=== PATIENT | male | born 1950 | race Caucasian/White ===

== ENCOUNTER → 2016-10-08 | Outpatient (CLI) | payer OTHER, MEDICARE ==
--- NOTE | 2016-10-08 07:26 | US ---
EXAMINATION TYPE: US kidneys/renal and bladder DATE OF EXAM: 10/08/2016 COMPARISON: August 23, 2013 CLINICAL HISTORY: Q61.3 PKD. known numerous bilateral cysts EXAM MEASUREMENTS: Right Kidney: 14.7 x 6.6 x 6.3 cm Left Kidney: 14.7 x 9.7 x 7.3 cm Due to the polycystic condition it is difficult to visualize distinct renal borders and obtain accura te size measurements. Right Kidney: numerous cysts, largest at the upper pole measuring 8.8cm Left Kidney: numerous cysts, largest at the upper pole measuring 10.3cm Bladder: wnl Bilateral Jets seen: yes The urinary bladder is anechoic. Bilateral ureteral jets are seen. IMPRESSION: Again noted are findings compatible with autosomal dominant polycystic kidney disease. No evidence fo r hydronephrosis nephrolithiasis or solid renal mass.
== END | disposition home or self-care (01) ==
LOC: RADUSWWP 06:54
PROVIDERS: ATTEND Internal Medicine Nephrology
DX: Q61.3 Polycystic kidney, unspecified (principal)
CPT/HCPCS: 76770

== ENCOUNTER → 2019-01-13 | Outpatient (CLI) | payer MEDICARE ==
--- NOTE | 2019-01-13 09:42 | US ---
EXAMINATION TYPE: US duplex aorta DATE OF EXAM: 01/13/2019 COMPARISON: None CLINICAL HISTORY: 68-year-old male F17.210 Nicotine dependence,Z0000 Annual physical. TECHNIQUE: Multiple sonographic images of the abdominal aorta are obtained. FINDINGS: EXAM MEASUREMENTS: Abdominal Aorta: Proximal: 2.2cm Mid: 2.2cm Distal: 1.9 Bifurcation: obscured by overlying bowel gas/obesity Atherosclerotic changes noted Obese patient, technically difficult study. *Anechoic structures to the left of midline appear to be renal cysts measuring up to 9 cm but only pa rtially visualized. IMPRESSION: 1. No sonographic evidence for AAA. Note that the aortic bifurcation and common iliac arteries are ob scured by bowel gas. 2. Numerous large bilateral renal cysts measuring up to 9 cm. Correlate for possible underlying polyc ystic kidney disease.
== END | disposition home or self-care (01) ==
LOC: RADUSWWP 07:24
PROVIDERS: ATTEND Family Medicine
DX: Z00.00 Encounter for general adult medical examination without abnormal findings (principal); F17.210 Nicotine dependence, cigarettes, uncomplicated
CPT/HCPCS: 93979

== ENCOUNTER → 2019-04-28 | Outpatient (CLI) | payer MEDICARE ==
--- NOTE | 2019-04-28 10:57 | MR ---
EXAMINATION TYPE: MR cervical spine wo con DATE OF EXAM: 04/28/2019 COMPARISON: 06/17/2013 HISTORY: Neck pain, rt arm weakness TECHNIQUE: Multiplanar, multisequence images of the cervical spine were acquired. C2-C3: Degenerative disc disease and disc desiccation. Facet arthropathy greater on the left results in mild left foraminal encroachment. C3-C4: Degenerative disc disease and facet arthropathy with uncovertebral joint hypertrophy. There is mild right-sided foraminal encroachment and severe left-sided foraminal encroachment. C4-C5: Severe degenerative disc disease and hypertrophic spurring. Broad-based disc protrusion with p osterior spondylosis results in moderate severe canal stenosis and bilateral foraminal encroachment. There is compression of the anterior margin the spinal cord. Area of abnormal signal within the spina l cord not excluded. Could not exclude a degree of compressive myelitis. Finding is progressed from t he prior exam. C5-C6: Severe degenerative disc disease with broad-based disc protrusion. There is facet arthropathy and uncovertebral joint hypertrophy. Severe bilateral foraminal encroachment and mild canal stenosis. Findings similar to the prior exam. C6-C7: Severe degenerative disc disease with broad-based disc bulging. Uncovertebral joint hypertroph y and facet arthropathy contribute to severe bilateral foraminal encroachment. No Canal stenosis. C7-T1: No evidence for degenerative disc disease. No disc bulge/herniation or protrusion. No Canal stenosis. Foramina are patent bilaterally. Cervical segments are intact. There is normal alignment. Question a small area of abnormal signal wi thin the cervical spinal cord at the level C4-C5 is not excluded. Craniovertebral junction relationsh ips are within normal limits. IMPRESSION: 1. Multilevel severe degenerative disc disease which is progressed from the prior exam. There is mode rate to severe canal stenosis at C4-C5 which is progressed from the prior exam. Findings secondary to apical spondylosis, disc protrusion with hypertrophic changes of the facets and uncovertebral joints . Severe bilateral foraminal encroachment. 2. Mild canal stenosis due to disc bulging or protrusion and hypertrophic changes C5-C6 with severe b ilateral foraminal encroachment. 3. Severe bilateral foraminal encroachment due to hypertrophic changes and degenerative disc disease C6-C7. 4. Severe left-sided foraminal encroachment C3-C4 due to hypertrophic spondylosis and uncovertebral j oint hypertrophy and facet arthropathy.
== END | disposition home or self-care (01) ==
LOC: RADMRIMAIN 09:26
PROVIDERS: ATTEND Family Medicine
DX: M48.02 Spinal stenosis, cervical region (principal); M50.221 Other cervical disc displacement at C4-C5 level; M50.31 Other cervical disc degeneration, high cervical region; M47.812 Spondylosis without myelopathy or radiculopathy, cervical region; M46.92 Unspecified inflammatory spondylopathy, cervical region
CPT/HCPCS: 72141

== ENCOUNTER → 2019-09-08 | Outpatient (CLI) | payer MEDICARE | END | disposition home or self-care (01) | LOC: LABPAT 12:38 | PROVIDERS: ATTEND Orthopaedic Surgery Orthopaedic Surgery of the Spine | DX: U07.1 COVID-19 (principal) | CPT/HCPCS: 86850; 86900; 86901 ==

== ENCOUNTER → 2019-09-09 | Outpatient (CLI) | payer MEDICARE, OTHER ==
--- NOTE | 2019-09-09 15:15 | XR ---
EXAMINATION TYPE: XR chest 2V DATE OF EXAM: 09/09/2019 COMPARISON: NONE TECHNIQUE: PA and lateral views submitted. HISTORY: Presurgical FINDINGS: The lungs are clear and there is no pneumothorax, pleural effusion, or focal pneumonia. Heart size mildly prominent. No overt failure. Hypertrophic and degenerative change of the spine. IMPRESSION: 1. No acute process.
[2019-09-09 15:16] LABS: Basophils # (A) 0.1 k/uL (0-0.2); Basophils % (A) 1 %; Eosinophils # (A) 0.2 k/uL (0-0.7); Eosinophils % (A) 3 %; HCT 47.2 % (39.0-53.0); HGB 14.8 gm/dL (13.0-17.5); Lymphocytes # (A) 1.1 k/uL (1.0-4.8); Lymphocytes % (A) 13 %; MCH 29.3 pg (25.0-35.0); MCHC 31.5 g/dL (31.0-37.0); MCV 93.2 fL (80.0-100.0); Mean Platelet Volume 7.2; Monocytes # (A) 0.5 k/uL (0-1.0); Monocytes % (A) 6 %; Neutrophils # (A) 6.2 k/uL (1.3-7.7); Neutrophils % (A) 76 %; Platelet Count 213 k/uL (150-450); RBC 5.06 m/uL (4.30-5.90); RDW 13.9 % (11.5-15.5); WBC 8.1 k/uL (3.8-10.6)
[2019-09-09 15:23] LABS: Partial Thromboplastin Time 28.1 sec (22.0-30.0); Prothrombin Time 10.6 sec (9.0-12.0)
[2019-09-09 15:29] LABS: Calcium 10.2 mg/dL (8.4-10.2); Potassium 4.3 mmol/L (3.5-5.1)
[2019-09-09 15:48] LABS: Amorphous Sediment,Urine Rare /hpf; Appearance,Urine Clear (Clear); Bilirubin,Urine Negative (Negative); Blood,Urine Negative (Negative); Color,Urine Yellow; Glucose,Urine (UA) Negative (Negative); Hyaline Casts,Urine 1 /lpf (0-2); Ketones,Urine Negative (Negative); Leukocyte Esterase,Urine Negative (Negative); Mucus,Urine Rare /hpf; Nitrite,Urine Negative (Negative); PH, Urine 5.5 (5.0-8.0); Protein,Urine 1+ (Negative); RBC,Urine 4 /hpf (0-5); Specific Gravity,Urine 1.014 (1.001-1.035); Squamous Epithelial Cell,Urine <1 /hpf (0-4); Urobilinogen,Urine <2.0 mg/dL (<2.0); WBC,Urine 1 /hpf (0-5)
== END | disposition home or self-care (01) ==
LOC: LABPAT 14:22
PROVIDERS: ATTEND Orthopaedic Surgery Orthopaedic Surgery of the Spine
DX: Z01.818 Encounter for other preprocedural examination (principal); Z79.01 Long term (current) use of anticoagulants; M48.02 Spinal stenosis, cervical region
CPT/HCPCS: 36415; 71046; 80048; 81001; 85025; 85610; 85730

== ENCOUNTER → 2019-09-12 | Day surgery (SDC) | payer MEDICARE ==
[2019-09-09 09:54] VITALS: BMI 35.6
[~2019-09-12] MED LIST: ALPRAZolam 0.5 MG TAB PO SCH; ASPIRIN 325 MG TAB PO SCH; ATORVASTATIN 80 MG TAB PO SCH; Acetaminophen-Codeine 300-30mg TAB PO PRN; BENZOCAINE/MENTHOL LOZENG 1 EACH LOZENGE MUCOUS MEM PRN; BUPIVACAINE (PF) 0.5% 30 ML VIAL SQ ONE; CHONDR SU A SOD PO SCH; CYCLOBENZAPRINE 5 MG TAB PO PRN; DEXAMETHASONE SOD PHOSPHATE 10 MG/ML 1 ML VIAL IV ONE; DEXAMETHASONE SOD PHOSPHATE 10 MG/ML 1 ML VIAL ONE; ENALAPRIL 5 MG PO SCH; ERGOCALCIFEROL 50,000 UNIT CAP PO SCH; FUROSEMIDE 40 MG TAB PO PRN; GELATIN SPONGE,ABSORB (LARGE) 1 EACH SPONGE TOPICAL ONE; GLUCOSAMINE PO SCH; GLYCOPYRROLATE 0.2 MG/ML 2 ML VIAL ONE; HYDRALAZINE HCL 100 MG PO SCH; HYDRALAZINE HCL 200 MG PO SCH; HYDROcodone/APAP 5-325MG 1 EACH TAB PO PRN; HYDROmorphone 0.5 MG/0.5 ML SYRINGE IVP PRN; HYDROmorphone 1 MG/ML 1 ML SYRINGE IVP PRN; KETAMINE 10 MG/ML 20 ML VIAL ONE; LACTATED RINGERS 1,000 ML IV ONE; LACTATED RINGERS 1,000 ML IV SCH; LIDOCAINE 1% INJ 10MG/ML (20 ML MDV) ONE; MAG HYDROX/AL HYDROX/SIMETH 30 ML CUP PO PRN; MAGNESIUM HYDROXIDE 2,400 MG/10 ML CUP PO PRN; METOPROLOL TARTRATE 100 MG PO SCH; MIDAZOLAM 2 MG/2 ML VIAL IV PRN; MIDAZOLAM 2 MG/2 ML VIAL ONE; NIACIN 500 MG PO SCH; NON FORMULARY DRUG (Omega-3 Fatty Acids/Fish Oil [Fish Oil 1,000 Mg Softgel] 1 EACH) PO SCH; ONDANSETRON 4 MG/2 ML VIAL IVP ONE; ONDANSETRON 4 MG/2 ML VIAL IVP PRN; ONDANSETRON 4 MG/2 ML VIAL ONE; POTASSIUM CHLORIDE 10 MEQ PO SCH; PRAMIPEXOLE 0.25 MG TAB PO SCH; PROPOFOL 10 MG/ML 20 ML VIAL IV ONE; ROCURONIUM BROMIDE 10 MG/ML 5 ML VIAL IV ONE; SODIUM CHLORIDE 0.9% 1,000 ML IV SCH; SODIUM CHLORIDE 0.9% IRRIGATIO 1,000 ML IRRIGATION ONE; SUCCINYLCHOLINE CHLORIDE 100 MG/5 ML SYR IV ONE; THROMBIN (BOVINE) 5,000 UNIT VIAL TOPICAL ONE; amLODIPine 5 MG TAB PO SCH; ceFAZolin 3 GM in SODIUM CHLORIDE 0.9% 100 ML IVPB ONE; ePHEDrine SULFATE/0.9% NACL/PF 50 MG/5 ML SYRINGE IV ONE; fentaNYL (PF) 50 MCG/ML 2 ML AMP ONE
--- NOTE | 2019-09-12 09:20 | P.OP ---
Date of Procedure: 09/12/19 Preoperative Diagnosis: Cervical stenosis C4 5 C5 6, upper extremity radiculopathy, upper extremity weakness, neck pain, herniated nucleus pulposus C4 5 C5 6, degenerative disc disease Postoperative Diagnosis: Same Anesthesia: GETA Pathology: none sent Condition: stable Disposition: PACU Description of Procedure: BRIEF OPERATIVE NOTE Preoperative Diagnosis:Cervical stenosis C4 5 C5 6, upper extremity radiculopathy, upper extremity weakness, neck pain, herniated nucleus pulposus C4 5 C5 6, degenerative disc disease Postoperative Diagnosis:Cervical stenosis C4 5 C5 6, upper extremity radiculopathy, upper extremity weakness, neck pain, herniated nucleus pulposus C4 5 C5 6, degenerative disc disease Procedure: Anterior cervical decompression with discectomy and fusion C4 5 C5 6 Placement of interbody graft C4 5 C5 6 Application of anterior cervical plate C4 5 and 6 Surgeon: Dr. Frankel Director Search: Marc Smiley is present throughout the entire the case persistence during positioning, dissection, exposure, visualization, and all crucial elements of the case as well as closure. Anesthesia: General anesthesia per Dr. Crabtree Estimated blood loss: Approximately 75 mL Complications: None apparent Components implanted: K2 and Morris anterior cervical plate system with screws and Vikos interbody allograft bone graft with 1 mL of DBX bone putty to supplemental bone graft Disposition: To recovery room in good stable condition. OPERATIVE INDICATIONS The patient has had long-standing issues in their neck and upper extremities. He's been having worsening his pain in his upper extremities with radiculopathy and weakness and numbness and tingling. He's been having worsening neck pain as well. The symptoms correlated well with his findings of cervical stenosis with disc herniation and degenerative disc disease at his cervical spine. The patient has been through conservative treatment. He is not having lasting benefit despite aggressive conservative care. We discussed various treatment options including surgery, and the patient wishes to proceed with surgery We discussed the risk, patient's alternatives and benefits of surgery including but not limited to, risk of bleeding risk of infection, risk of need for further surgery, risk of decreased, loss of motion, muscle function, malunion nonunion, hardware failure, nerve damage, paralysis, heart attack, and . We also discussed the fact that there is a current pandemic and there is possibility of infection despite all appropriate precautions. The patient understood these issues. OPERATIVE SUMMARY After discussing all the risks, patient alternatives and benefits at length, the patient elected to proceed with surgical intervention, signed informed consent, and presented for their procedure. The patient was seen and examined in the preoperative holding area and the surgical site was marked. The patient was given antibiotics and brought to the operating room. The patient was positioned on the operating room table in a supine position being careful to pad any bony prominences and pressure points. The patient was sedated and intubated by anesthesia in standard fashion. Once the airway and C- spine were stabilized the patient's arms were padded and tucked at her side, with her shoulders gently taped. The head was placed in a donut pad with the neck in good neutral alignment and position. We were careful to maintain the patient's cervical spine and good neutral alignment and position throughout. The patient was prepped and draped in a normal standard fashion. An appropriate timeout and keystone protocol performed. We were able to proceed with the surgery. The local wound area was infiltrated with local anesthetic. An incision was made transversely approximately 2-1/2 cm over the appropriate levels at C5. Dissection was taken down subcutaneously to the level of the platysma which was split in line with its fibers. Dissection was taken with a carotid approach, with the trachea and esophagus medial and the carotid sheath laterally. We dissected down to the anterior surface of the vertebral bodies. Intraoperative x-ray was taken which showed a marker at the appropriate level at C4 5. With the appropriate level positively confirmed, we were able to proceed with discectomy at the appropriate levels. All of the operative levels were exposed appropriately. The patient had all their twitches back, and there was no evidence of recurrent laryngeal issue. The wound was copiously irrigated and suctioned dry as had been done periodically throughout the case. At the appropriate level/levels, starting at C4 5 and then working the C5 6 . There were large anterior cervical osteophytes that had to be taken down with rongeur and high-speed bur. I established an annulotomy with an 11 blade scalpel. A discectomy was performed with a combination of pituitary rongeurs, curettes, a high-speed bur, and Kerrison rongeurs. The posterior longitudinal ligament was taken down as were any posterior osteophytes. There was significant central and bilateral foraminal stenosis which was remedied with the decompression and discectomy. This gave good central and bilateral foraminal decompression. There is no evidence of any dural tear or leak. The endplates were prepared with a high-speed bur. With the endplates in good parallel position, I was able to size for the appropriate size interbody graft. The wound was irrigated and suctioned dry the graft was prepared and malleted into position. It had good alignment and position with the anterior surface flush with the anterior surface of the vertebral bodies at C4 5 and 6. This was done similarly the appropriate levels. With the grafts intact, I was able to measure and contour and appropriate sized plate. The plate was positioned at the midline over the appropriate levels at C4 5 and 6. Screw holes were established with a hand drill and drill guide. Screws were placed in good alignment and position with excellent bony purchase. They were seated under the locking device. The construct was checked and found to be stable. Intraoperative x-ray was taken which showed good alignment and position of the implants at the appropriate levels. There was no evidence of any dural tear or leak. Good hemostasis was maintained. The wound was copiously irrigated and suctioned dry as had been done periodically throughout the case. The platysma was closed with absorbable suture. The subcutaneous tissue was closed. The subcuticular tissue was closed with absorbable suture. The wound was cleaned and dried and dressed appropriately. A soft cervical collar was placed appropriately. The patient was woken up by anesthesia, extubated, transferred back gently to their hospital bed and brought to the recovery room in good stable condition. The patient will be admitted to the hospital for appropriate postoperative care, medical management and monitoring. We will continue to follow them closely about the postoperative course.
[2019-09-12 09:31] VITALS: TEMP 96.9
[2019-09-12 09:44] VITALS: RESP 16
--- NOTE | 2019-09-12 09:45 | XR ---
EXAMINATION TYPE: XR cervical spine 1V DATE OF EXAM: 09/12/2019 COMPARISON: NONE HISTORY: Needle placement TECHNIQUE: One view submitted FINDINGS: Multilevel severe degenerative disc disease. There is a metallic instrument overlying the C 4-C5 level. Endotracheal tube noted. IMPRESSION: Intraoperative localization
--- NOTE | 2019-09-12 09:46 | XR ---
EXAMINATION TYPE: XR cervical spine limited DATE OF EXAM: 09/12/2019 COMPARISON: NONE HISTORY: Hardware placement TECHNIQUE: One view submitted FINDINGS: Postsurgical change involving the lower cervical spine. Hypertrophic change and degenerativ e disc disease noted. IMPRESSION: Postsurgical change noted.
[2019-09-12 11:30] VITALS: BP 131/74; PULSE 56
== END ==
LOC: OR 05:34
PROVIDERS: ATTEND Orthopaedic Surgery Orthopaedic Surgery of the Spine
DX: M50.121 Cervical disc disorder at C4-C5 level with radiculopathy (principal); M48.02 Spinal stenosis, cervical region; I10 Essential (primary) hypertension; I25.2 Old myocardial infarction; I25.10 Atherosclerotic heart disease of native coronary artery without angina pectoris; E78.5 Hyperlipidemia, unspecified; F17.210 Nicotine dependence, cigarettes, uncomplicated; F41.9 Anxiety disorder, unspecified; H26.9 Unspecified cataract; H35.00 Unspecified background retinopathy; E55.9 Vitamin D deficiency, unspecified; H54.7 Unspecified visual loss; Z88.6 Allergy status to analgesic agent; Z79.82 Long term (current) use of aspirin; Z79.899 Other long term (current) drug therapy; Z97.3 Presence of spectacles and contact lenses; Z82.49 Family history of ischemic heart disease and other diseases of the circulatory system
CPT/HCPCS: 72020; 72040; 22551; 22552; 22853 ×2; 20930; 22845; C1713 ×2; C1762; J2250; J1100; J0690; J2405; J2001; J3010; J0330; J2704; 86850; 86900; 86901

== ENCOUNTER → 2019-10-28 | Outpatient (CLI) | payer MEDICARE ==
--- NOTE | 2019-11-04 20:44 | HM ---
HOLTER MONITOR REPORT PROCEDURE: A 24 hour Holter monitor. INDICATION: Palpitations. REFERRING: Dr. Sarai Isaac. RESULTS: The patient was monitored for 24 hours. The baseline rhythm appeared to be sinus with a minimum heart rate of 39 beats per minute, max 79 and average of 52 beats per minute. Supraventricular ectopic events were not noted. Ventricular ectopic events noted rarely with only single PVCs. No evidence of sinus pause or sinus arrest. The patient reported no symptoms. CONCLUSION: 1. Sinus rhythm as a baseline mechanism. 2. Rare ventricular ectopic events. 3. Rare supraventricular ectopic events. 4. No evidence of sinus pause or sinus arrest. 5. No evidence of any supraventricular tachycardia or atrial fibrillation. 6. The patient reported no symptoms. MMODL / IJN: [id number] /
== END | disposition home or self-care (01) ==
LOC: RADECHMAIN 11:47
PROVIDERS: ATTEND Physician Assistant Medical
DX: R00.2 Palpitations (principal); R42 Dizziness and giddiness
CPT/HCPCS: 93225; 93226

== ENCOUNTER → 2020-06-05 | Outpatient (CLI) | payer MEDICARE ==
--- NOTE | 2020-06-06 09:00 | XR ---
EXAM TYPE: LUMBAR SPINE X RAY SERIES COMPARISON: NONE HISTORY: Pain TECHNIQUE: 4 views are submitted. FINDINGS: Alignment is anatomic. The pedicles are intact. The transverse processes are intact. There is no s pondylolysis or spondylolisthesis. Diffuse osteopenia. Multilevel facet arthropathy and degenerative changes. Vascular calcifications in the aorta. No compression deformities. Grade 1 anterolisthesis L 4 on L5. IMPRESSION: 1. Multilevel degenerative disc disease and facet arthropathy..
== END | disposition home or self-care (01) ==
LOC: RADXRYALE 16:11
PROVIDERS: ATTEND Family Medicine
DX: M51.36 Other intervertebral disc degeneration, lumbar region (principal); M47.816 Spondylosis without myelopathy or radiculopathy, lumbar region
CPT/HCPCS: 72110

== ENCOUNTER → 2020-06-25 | Outpatient (CLI) | payer MEDICARE ==
--- NOTE | 2020-06-25 22:59 | MR ---
EXAMINATION TYPE: MR lumbar spine wo con DATE OF EXAM: 06/25/2020 COMPARISON: Lumbar spine x-ray June 05, 2020 HISTORY: Low back pain that goes down left and right leg. TECHNIQUE: Multiplanar, multisequence imaging of the lumbar spine is performed without IV contrast. FINDINGS: Sagittal images of the lumbar spine show vertebral body heights and alignment to remain sat isfactory. Multilevel disc desiccation but the disc space heights are preserved. The conus medullari s is normal in position and signal ending at L1-L2 disc space level. The bone marrow signal intensit y is within normal limits. Axial images at T12-L1 level show mild broad disc bulge minimally effaces the anterior thecal sac. Axial images at L1-L2 level appear within normal limits. Axial images at L2-L3 level show mild facet arthropathy bilaterally. Axial images at L3-L4 level shows mild/moderate facet degenerative changes bilaterally. Axial images at L4-L5 level show advanced facet degenerative changes and ligamentum flavum hypertroph y. There is mild broad-based posterior disc protrusion. There are bilateral cyst or cystic lesions pr esumed synovial cysts, right-sided lesion measures 7 mm axial image 9 and left-sided lesion is more a nterior in position measuring 9 x 5 mm. Both have local mass effect on spinal canal. There is additio nal mild bilateral anterior inferior neural foraminal narrowing. Axial images at L5-S1 level show mild facet arthropathy bilaterally. Spinal canal is preserved. Paten t bilateral neural foramina. Extensive cystic change visualized portion of bilateral kidneys of varying size and shape. Findings c onsistent with known polycystic kidney disease when correlating with 2017 ultrasound. IMPRESSION: Multilevel degenerative changes as detailed above. Most significant findings are L4-L5 le zach where there is significant spinal canal effacement or stenosis due to bilateral synovial cysts an d advanced facet arthropathy as detailed above.
== END | disposition home or self-care (01) ==
LOC: RADMRIMAIN 15:44
PROVIDERS: ATTEND Family Medicine
DX: M51.25 Other intervertebral disc displacement, thoracolumbar region (principal); M47.816 Spondylosis without myelopathy or radiculopathy, lumbar region
CPT/HCPCS: 72148

== ENCOUNTER → 2020-10-18 | Outpatient (CLI) | payer MEDICARE ==
[2020-10-18 12:44] LABS: HCT 44.7 % (39.0-53.0); MCH 31.7 pg (25.0-35.0); MCHC 33.5 g/dL (31.0-37.0); MCV 94.7 fL (80.0-100.0); Mean Platelet Volume 7.3; Platelet Count 216 k/uL (150-450); RBC 4.72 m/uL (4.30-5.90); RDW 14.2 % (11.5-15.5); WBC 6.3 k/uL (3.8-10.6)
[2020-10-18 12:51] LABS: Calcium 9.8 mg/dL (8.4-10.2); Potassium 4.4 mmol/L (3.5-5.1)
[2020-10-18 13:06] LABS: Partial Thromboplastin Time 29.5 sec (22.0-30.0); Prothrombin Time 10.8 sec (9.0-12.0)
== END | disposition home or self-care (01) ==
LOC: LABPAT 10:30
PROVIDERS: ATTEND Orthopaedic Surgery Orthopaedic Surgery of the Spine
DX: Z01.818 Encounter for other preprocedural examination (principal); M48.061 Spinal stenosis, lumbar region without neurogenic claudication; I45.9 Conduction disorder, unspecified; R00.1 Bradycardia, unspecified; R94.31 Abnormal electrocardiogram [ECG] [EKG]
CPT/HCPCS: 36415; 80048; 85027; 85610; 85730

== ENCOUNTER → 2020-10-18 | Outpatient (CLI) | payer MEDICARE ==
--- NOTE | 2020-10-18 10:07 | XR ---
EXAMINATION TYPE: XR chest 2V DATE OF EXAM: 10/18/2020 COMPARISON: 09/09/2019 TECHNIQUE: PA and lateral views submitted. HISTORY: Preop FINDINGS: The lungs are clear and there is no pneumothorax, pleural effusion, or focal pneumonia. Subsegmental linear changes at the lung bases most typical of atelectasis. Hypertrophic and degenerative change o f the spine. IMPRESSION: 1. No acute process.
== END | disposition home or self-care (01) ==
LOC: RADXRYALE 09:33
PROVIDERS: ATTEND Physician Assistant
DX: Z01.818 Encounter for other preprocedural examination (principal)
CPT/HCPCS: 71046

== ENCOUNTER 2020-10-29 05:36 | Day surgery (SDC) | payer MEDICARE ==
[2020-10-22 13:51] VITALS: BMI 35.3
[~2020-10-29 05:36] MED LIST changes: -ALPRAZolam 0.5 MG TAB PO SCH; -ASPIRIN 325 MG TAB PO SCH; -ATORVASTATIN 80 MG TAB PO SCH; -Acetaminophen-Codeine 300-30mg TAB PO PRN; -BENZOCAINE/MENTHOL LOZENG 1 EACH LOZENGE MUCOUS MEM PRN; -BUPIVACAINE (PF) 0.5% 30 ML VIAL SQ ONE; -CHONDR SU A SOD PO SCH; -CYCLOBENZAPRINE 5 MG TAB PO PRN; -DEXAMETHASONE SOD PHOSPHATE 10 MG/ML 1 ML VIAL IV ONE; -DEXAMETHASONE SOD PHOSPHATE 10 MG/ML 1 ML VIAL ONE; +DEXAMETHASONE SOD PHOSPHATE 4 MG/ML 1 ML VIAL IV ONE; -ENALAPRIL 5 MG PO SCH; -ERGOCALCIFEROL 50,000 UNIT CAP PO SCH; -FUROSEMIDE 40 MG TAB PO PRN; -GELATIN SPONGE,ABSORB (LARGE) 1 EACH SPONGE TOPICAL ONE; -GLUCOSAMINE PO SCH; -GLYCOPYRROLATE 0.2 MG/ML 2 ML VIAL ONE; -HYDRALAZINE HCL 100 MG PO SCH; -HYDRALAZINE HCL 200 MG PO SCH; -HYDROcodone/APAP 5-325MG 1 EACH TAB PO PRN; -HYDROmorphone 0.5 MG/0.5 ML SYRINGE IVP PRN; -HYDROmorphone 1 MG/ML 1 ML SYRINGE IVP PRN; -KETAMINE 10 MG/ML 20 ML VIAL ONE; -LACTATED RINGERS 1,000 ML IV ONE; +LIDOCAINE 1% (10MG/ML) FOR IV START INTRADERMA PRN; -LIDOCAINE 1% INJ 10MG/ML (20 ML MDV) ONE; -MAG HYDROX/AL HYDROX/SIMETH 30 ML CUP PO PRN; -MAGNESIUM HYDROXIDE 2,400 MG/10 ML CUP PO PRN; -METOPROLOL TARTRATE 100 MG PO SCH; -MIDAZOLAM 2 MG/2 ML VIAL IV PRN; -MIDAZOLAM 2 MG/2 ML VIAL ONE; -NIACIN 500 MG PO SCH; -NON FORMULARY DRUG (Omega-3 Fatty Acids/Fish Oil [Fish Oil 1,000 Mg Softgel] 1 EACH) PO SCH; -ONDANSETRON 4 MG/2 ML VIAL IVP PRN; -ONDANSETRON 4 MG/2 ML VIAL ONE; -POTASSIUM CHLORIDE 10 MEQ PO SCH; -PRAMIPEXOLE 0.25 MG TAB PO SCH; -PROPOFOL 10 MG/ML 20 ML VIAL IV ONE; -ROCURONIUM BROMIDE 10 MG/ML 5 ML VIAL IV ONE; -SODIUM CHLORIDE 0.9% 1,000 ML IV SCH; -SODIUM CHLORIDE 0.9% IRRIGATIO 1,000 ML IRRIGATION ONE; -SUCCINYLCHOLINE CHLORIDE 100 MG/5 ML SYR IV ONE; -THROMBIN (BOVINE) 5,000 UNIT VIAL TOPICAL ONE; -amLODIPine 5 MG TAB PO SCH; -ceFAZolin 3 GM in SODIUM CHLORIDE 0.9% 100 ML IVPB ONE; +ceFAZolin 3 GM in SODIUM CHLORIDE 0.9% 100 ML IVPB PRN; -ePHEDrine SULFATE/0.9% NACL/PF 50 MG/5 ML SYRINGE IV ONE; -fentaNYL (PF) 50 MCG/ML 2 ML AMP ONE
[2020-10-29] MEDS ORDERED: LACTATED RINGERS 1,000 ML IV ONE ×2 (06:13→08:19)
[2020-10-29] MEDS ORDERED: LIDOCAINE 1% INJ 10MG/ML (20 ML MDV) ONE (06:54)
[2020-10-29] MEDS ORDERED: ePHEDrine SULFATE/0.9% NACL/PF 50 MG/5 ML SYRINGE IV ONE (06:54)
[2020-10-29] MEDS ORDERED: KETAMINE 10 MG/ML 20 ML VIAL ONE (06:54)
[2020-10-29] MEDS ORDERED: MIDAZOLAM 2 MG/2 ML VIAL ONE (06:54)
[2020-10-29] MEDS ORDERED: PROPOFOL 10 MG/ML 20 ML VIAL IV ONE (06:54)
[2020-10-29] MEDS ORDERED: SUCCINYLCHOLINE CHLORIDE VIAL 200 MG/10 ML VIAL IV ONE (06:54)
[2020-10-29] MEDS ORDERED: PHENYLEPHRINE-0.9% NACL SYG 1,000 MCG/10 ML SYRINGE ONE (06:54)
[2020-10-29] MEDS ORDERED: ceFAZolin 1,000 MG in SODIUM CHLORIDE 0.9% 1,000 ML IRRIGATION ONE (07:30)
[2020-10-29] MEDS ORDERED: LIDOCAINE 1%-EPI 1:100,000 20 ML VIAL SQ ONE ×2 (07:30)
[2020-10-29] MEDS ORDERED: methylPREDNISolone ACETATE 80 MG/ML 1 ML VIAL MISCELLANE ONE ×2 (07:30→07:53)
[2020-10-29] MEDS ORDERED: THROMBIN (BOVINE) 5,000 UNIT VIAL TOPICAL ONE (07:30)
[2020-10-29] MEDS ORDERED: GELATIN SPONGE,ABSORB (LARGE) 1 EACH SPONGE TOPICAL ONE (07:30)
--- NOTE | 2020-10-29 08:10 | FL ---
EXAMINATION TYPE: FL guidance operating room, XR lumbar spine 1V DATE OF EXAM: 10/29/2020 FLUOROSCOPY Fluoroscopy time of 3 seconds was used during lumbar laminectomy. 1 lateral intraoperative view imag e/s document/s the procedure.
[2020-10-29] MEDS ORDERED: HYDROmorphone 1 MG/ML 1 ML SYRINGE IVP PRN (08:39)
[2020-10-29] MEDS ORDERED: HYDROcodone/APAP 5-325MG 1 EACH TAB PO PRN (08:39)
[2020-10-29] MEDS ORDERED: traMADol 50 MG TAB PO PRN ×2 (08:39→08:41)
[2020-10-29] MEDS ORDERED: BENZOCAINE/MENTHOL LOZENG 1 EACH LOZENGE MUCOUS MEM PRN (08:39)
[2020-10-29] MEDS ORDERED: HYDROmorphone 0.5 MG/0.5 ML SYRINGE IVP PRN (08:39)
[2020-10-29] MEDS ORDERED: CYCLOBENZAPRINE 5 MG TAB PO PRN (08:41)
[2020-10-29] MEDS ORDERED: FUROSEMIDE 40 MG TAB PO PRN (08:41)
[2020-10-29 08:45] VITALS: RESP 16; TEMP 97
[2020-10-29] MEDS ORDERED: SODIUM CHLORIDE 0.9% 1,000 ML IV SCH (08:45)
--- NOTE | 2020-10-29 08:48 | P.OP ---
Date of Procedure: 10/29/20 Preoperative Diagnosis: Severe spinal stenosis, large bilateral invasive facet cyst L4 5, lower extremity radiculopathy, lower extremity weakness, neurogenic claudication Postoperative Diagnosis: Same Anesthesia: GETA Pathology: none sent Condition: stable Disposition: PACU Description of Procedure: BRIEF OPERATIVE NOTE Preoperative Diagnosis:Severe spinal stenosis, large bilateral invasive facet cyst L4 5, lower extremity radiculopathy, lower extremity weakness, neurogenic claudication Postoperative Diagnosis:Severe spinal stenosis, large bilateral invasive facet cyst L4 5, lower extremity radiculopathy, lower extremity weakness, neurogenic claudication Procedure: Bilateral Laminectomy and decompression L4 5 with partial medial facetectomy and foraminotomies bilaterally Excision of large invasive bilateral facet cyst L4 5 for decompression Surgeon: Dr. Frankel [facility] House Worker: Marc FLORES who is present throughout the entire the case persistence during positioning, dissection, exposure, visualization, and all crucial elements of the case as well as closure. Anesthesia: General anesthesia Estimated blood loss: Approximately 30 mL Complications: None apparent Components implanted: None Disposition: To recovery room in good stable condition. OPERATIVE INDICATIONS The patient has been having issues in their lower back and lower extremities. He is having worsening of his back and his lower extremities despite conservative treatment. He is having some weakness in his legs with neurogenic claudication and radiculopathy which is making it difficult for him to mobilize and get around. He is found have severe stenosis with large facet cyst at L4 5 which were somewhat invasive for him and correlate well with his low back and lower extremity symptoms. The patient has been through conservative treatment. We discussed various treatment options including surgery, and the patient wishes to proceed with surgery We discussed the risk, patient's alternatives and benefits of surgery including but not limited to, risk of bleeding risk of infection, risk of need for further surgery, risk of decreased, loss of motion, loss of function, nerve damage, paralysis, heart attack, blindness and . OPERATIVE SUMMARY After discussing all the risks, patient alternatives and benefits at length, the patient elected to proceed with surgical intervention, signed informed consent, and presented for their procedure. The patient was seen and examined in the preoperative holding area and the surgical site was marked. The patient was given antibiotics and brought to the operating room. The patient was sedated and intubated by anesthesia in standard fashion. The patient was positioned on to the operating room table in a prone position on the appropriate frame which was well-padded and well molded. We were careful to pad any bony prominences and pressure points. We were careful to maintain the patient's cervical spine and good neutral alignment and position throughout. The patient was prepped and draped in a normal standard fashion. An appropriate timeout and keystone protocol performed. We were able to proceed with the surgery. Fluoroscopy was utilized to establish the appropriate level at L4 5. The local wound area was infiltrated with local anesthetic. An incision was made at the midline longitudinally over the appropriate levels at L4 5. Dissection was taken down subcutaneously to the level of the fascia which was split midline. Dissection was taken over the lamina. Intraoperative fluoroscopy was taken which showed a marker at the appropriate level at L4 5. With the appropriate level positively confirmed, we were able to proceed with laminectomy. The wound was copiously irrigated and suctioned dry as had been done periodically throughout the case. I performed a laminectomy with a combination of curettes and a high-speed bur and Kerrison rongeurs. A small medial facetectomy was performed again further access. A partial foraminotomy was also performed. Portions of the ligamentum flavum were taken down to expose the dura and traversing nerve roots bilaterally at L4 5. There is evidence of large facet cysts particular to left side and stenting cross over towards the right side causing severe neural compression at the L4 5 level. I was able to dissect a plane between the facet cysts and the dura. I was able to identify the disc as well. As able to identify the facet cyst and mass at the dural space. I began excising the facet cyst and some contents of cyst were some fatty and fluid and able removed. I sent contents and portions of the facet capsule to pathology. There is no evidence of any dural tear or leak. The cyst was somewhat invasive and extending toward the neural foramen across the midline and over towards the right side from the left and I was able to excise all of the material. I was able to mobilize the traversing nerve root and gain access to the disc space. I was able to palpate the disc space and I did not feel that there was significant disc herniation. I felt we had excellent decompression with excision of the cyst. There is no evidence of dural tear or leak. Good hemostasis maintained. The wound was copiously irrigated and suctioned dry. Good decompression and discectomy was noted. We were able to proceed with closure. The fascia was closed for a watertight closure. The subcuticular tissue was closed with absorbable suture. The wound was cleaned and dried and dressed with the appropriate dressing. The drapes were broken down. The patient was gently rolled back onto their hospital bed being careful to maintain their cervical spine and good neutral alignment and position. They were woken up by anesthesia, extubated, and brought to the recovery room in good stable condition. The patient will be admitted to the hospital for observation and for appropriate postoperative care, medical management and monitoring. We will continue to follow them closely about the postoperative course.
[2020-10-29] MEDS ORDERED: ATORVASTATIN 80 MG TAB PO SCH (09:00)
[2020-10-29] MEDS ORDERED: NON FORMULARY DRUG (Potassium Chloride [Klor-Con 10] 10 MEQ Tablet.Er) PO SCH (09:00)
[2020-10-29] MEDS ORDERED: amLODIPine 5 MG TAB PO SCH (09:00)
[2020-10-29] MEDS ORDERED: SENNOSIDES-DOCUSATE SODIUM 1 EACH TAB PO SCH (09:00)
[2020-10-29] MEDS ORDERED: NON FORMULARY DRUG (Omega-3 Fatty Acids/Fish Oil [Omega-3 Fish Oil 1,200 Mg Sfgl] 1 EACH C PO SCH (09:00)
[2020-10-29] MEDS ORDERED: ASPIRIN 325 MG TAB PO SCH (09:00)
[2020-10-29] MEDS ORDERED: cloNIDine HCL 0.1 MG TAB PO SCH (09:00)
[2020-10-29] MEDS ORDERED: HYDROmorphone 0.5 MG/0.5 ML SYRINGE IVP ONE ×2 (09:11→09:35)
[2020-10-29 10:32] VITALS: PULSE 46
[2020-10-29] MEDS ORDERED: ONDANSETRON 4 MG/2 ML VIAL ONE (10:52)
[2020-10-29] MEDS ORDERED: ONDANSETRON 4 MG/2 ML VIAL IVP ONE (10:55)
[2020-10-29 11:54] VITALS: BP 130/80
[2020-10-29] MEDS ORDERED: ceFAZolin 3 GM in SODIUM CHLORIDE 0.9% 100 ML IVPB SCH (16:00)
[2020-10-29] MEDS ORDERED: ALPRAZolam 0.5 MG TAB PO SCH (21:00)
[2020-10-29] MEDS ORDERED: PRAMIPEXOLE 0.25 MG TAB PO SCH (21:00)
[2020-10-29] MEDS ORDERED: hydrALAZINE HCL 50 MG TAB PO SCH (21:00)
[2020-10-29] MEDS ORDERED: METOPROLOL TARTRATE 50 MG TAB PO SCH (21:00)
[2020-10-30] MEDS ORDERED: lisinopriL 20 MG TAB PO SCH (09:00)
[2020-11-02] MEDS ORDERED: ERGOCALCIFEROL 1,250 MCG (50,000 IU) CAPSULE PO SCH (09:00)
== END 2020-10-29 12:13 | disposition home or self-care (01) ==
LOC: OR 05:36
PROVIDERS: ATTEND Orthopaedic Surgery Orthopaedic Surgery of the Spine
DX: M48.062 Spinal stenosis, lumbar region with neurogenic claudication (principal); M54.16 Radiculopathy, lumbar region; Z79.899 Other long term (current) drug therapy; E78.5 Hyperlipidemia, unspecified; I87.2 Venous insufficiency (chronic) (peripheral); E55.9 Vitamin D deficiency, unspecified; I10 Essential (primary) hypertension; I25.2 Old myocardial infarction; F41.9 Anxiety disorder, unspecified; I25.10 Atherosclerotic heart disease of native coronary artery without angina pectoris; F17.210 Nicotine dependence, cigarettes, uncomplicated; M19.90 Unspecified osteoarthritis, unspecified site; G43.909 Migraine, unspecified, not intractable, without status migrainosus; N28.9 Disorder of kidney and ureter, unspecified
CPT/HCPCS: 88307; 88311; 72020; 63047; J2250; J0330; J1040; J0690 ×2; J2405; J2001; J2370; J2704; J1170; J1790; 86850; 86900; 86901

== ENCOUNTER → 2021-06-12 | Outpatient (CLI) | payer MEDICARE ==
--- NOTE | 2021-06-12 15:52 | XR ---
Right wrist HISTORY: Right wrist lump, right wrist pain 3 views of the right wrist There is marked arthropathy carpometacarpal joint of the first digit, subchondral sclerosis, joint sp rogelio loss, hypertrophic changes. No evident fracture or dislocation. Some osteoarthritic change also p resent at the intercarpal row radial aspect. Remodeling present at the radiocarpal joint. IMPRESSION: Osteoarthritis. Wrist MRI or ultrasound may be of benefit if there is a discrete palpable mass
== END | disposition home or self-care (01) ==
LOC: RADXRYALE 14:24
PROVIDERS: ATTEND Physician Assistant Medical
DX: M19.031 Primary osteoarthritis, right wrist (principal)

== ENCOUNTER → 2021-08-30 | Outpatient (CLI) | payer MEDICARE ==
--- NOTE | 2021-08-30 15:06 | XR ---
Cervical spine HISTORY: [id number],[id number] CERVICALGIA,CDD 5 views of the cervical spine, correlation prior exam 09/12/2019 Patient shows anterior cervical fusion and discectomy change at C4-C6. Underlying degenerative disc c hanges are noted. Intervertebral spacing block C5-6. Alignment is near-anatomic. Anterolisthesis grad e 1 C2-3, C3-4. There is facet arthropathy change. Bone mineralization is reduced. Cervical vertebral bodies show preserved height. Loss of disc height present C3-4, C6-7. Prevertebral soft tissues are normal. There is foraminal encroachment on the right at C4-5, C5-6 and C6-7 and on the left at the sa me levels. Frontal exam is rotated. IMPRESSION: Degenerative disc disease, facet arthropathy, multilevel foraminal encroachment, postop c hanges.
== END | disposition home or self-care (01) ==
LOC: RADXRYALE 13:59
PROVIDERS: ATTEND Physician Assistant Medical
DX: M50.323 Other cervical disc degeneration at C6-C7 level (principal); M47.812 Spondylosis without myelopathy or radiculopathy, cervical region; M99.71 Connective tissue and disc stenosis of intervertebral foramina of cervical region
CPT/HCPCS: 72050

== ENCOUNTER → 2022-01-02 | Outpatient (CLI) | payer MEDICARE ==
--- NOTE | 2022-01-02 14:52 | XR ---
Right shoulder HISTORY: Right shoulder pain 3 views the right shoulder Motion is present on the exam. Bone mineralization, joint spaces and alignment are maintained. There is hypertrophic change at the acromioclavicular joint. Difficult to exclude a distal acromial spur. R ight lung apex as visualized is normal. No fracture or dislocation. IMPRESSION: Correlate for impingement, shoulder MRI may be of benefit.
== END | disposition home or self-care (01) ==
LOC: RADXRYALE 14:34
PROVIDERS: ATTEND Physician Assistant Medical
DX: M75.41 Impingement syndrome of right shoulder (principal)

== ENCOUNTER → 2022-07-14 | Outpatient (CLI) | payer MEDICARE ==
--- NOTE | 2022-07-14 12:28 | XR ---
EXAMINATION TYPE: XR chest 2V DATE OF EXAM: 07/14/2022 COMPARISON: NONE TECHNIQUE: PA and lateral views submitted. HISTORY: Hemoptysis FINDINGS: The lungs are clear and there is no pneumothorax, pleural effusion, or focal pneumonia. Heart size normal and no overt failure. Osseous structures demonstrate hypertrophic and degenerative changes of the spine. IMPRESSION: 1. No acute process.
== END | disposition home or self-care (01) ==
LOC: RADXRYALE 12:08
PROVIDERS: ATTEND Family Medicine
DX: R04.2 Hemoptysis (principal)
CPT/HCPCS: 71046

== ENCOUNTER → 2023-07-20 | Outpatient (CLI) | payer MEDICARE ==
--- NOTE | 2023-07-20 11:15 | XR ---
EXAM TYPE: LUMBAR SPINE X RAY SERIES COMPARISON: 06/05/2020 HISTORY: Back pain TECHNIQUE: 4 views are submitted. FINDINGS: Alignment is anatomic. The pedicles are intact. The transverse processes are intact. There is ther e is diffuse osteopenia hypertrophic changes at multiple levels with multilevel facet arthropathy. Fi ndings most marked L4-5 and L5-S1 with grade 1 anterolisthesis. Vascular calcifications seen. Could n ot exclude a mild aneurysm of the aorta. IMPRESSION: 1. Diffuse osteopenia with severe facet arthropathy lower lumbar spine resulting in grade 1 anterolis thesis L4-5 and to a lesser extent L5-S1. Suspect foraminal encroachment. 2. Vascular calcifications. Consider follow-up ultrasound to assess the abdominal aorta for borderlin e aneurysm.
== END | disposition home or self-care (01) ==
LOC: RADXRYALE 10:56
PROVIDERS: ATTEND Physician Assistant Medical
DX: M47.817 Spondylosis without myelopathy or radiculopathy, lumbosacral region (principal); M43.17 Spondylolisthesis, lumbosacral region; M85.88 Other specified disorders of bone density and structure, other site; R20.2 Paresthesia of skin; W01.0XXA Fall on same level from slipping, tripping and stumbling without subsequent striking against object, initial encounter
CPT/HCPCS: 72110

== ENCOUNTER → 2023-08-04 | Outpatient (CLI) | payer MEDICARE ==
[2023-08-04 10:30] LABS: HCT 45.2 % (39.0-53.0); HGB 14.2 gm/dL (13.0-17.5); MCH 30.4 pg (25.0-35.0); MCHC 31.4 g/dL (31.0-37.0); MCV 96.7 fL (80.0-100.0); Mean Platelet Volume 7.8; Platelet Count 142 k/uL (150-450); RBC 4.67 m/uL (4.30-5.90); RDW 14.4 % (11.5-15.5); WBC 7.7 k/uL (3.8-10.6)
[2023-08-04 10:44] LABS: ALT 16 U/L (4-49); AST 22 U/L (17-59); African American GFR (CKD) 40 (>60 ml/min/1.73 sqM); Albumin 3.6 g/dL (3.5-5.0); Albumin/Globulin Ratio 1.2; Alkaline Phosphatase 72 U/L (38-126); Anion Gap 3 mmol/L; Blood Urea Nitrogen 36 mg/dL (9-20); Calcium 9.1 mg/dL (8.4-10.2); Carbon Dioxide 29 mmol/L (22-30); Chloride 107 mmol/L (98-107); Globulin 2.9 g/dL; Glucose 95 mg/dL (74-99); Non-African American GFR(CKD) 35 (>60 ml/min/1.73 sqM); Potassium 4.2 mmol/L (3.5-5.1); Sodium 139 mmol/L (137-145); Total Bilirubin 0.8 mg/dL (0.2-1.3); Total Protein 6.5 g/dL (6.3-8.2)
--- NOTE | 2023-08-05 05:50 | CT ---
EXAMINATION TYPE: CT chest wo con DATE OF EXAM: 08/04/2023 COMPARISON: NONE HISTORY: THORACIC AORTIC ANEURYSM no contrast due to poor labs CT DLP: 723 mGycm. Automated Exposure Control for Dose Reduction was Utilized. TECHNIQUE: CT scan of the thorax is performed without IV contrast. IV contrast not given due to jennifer ent's diminished renal function. Lungs: Mild bibasilar linear scarring. No focal consolidation. No pleural effusion or pneumothorax se en bilaterally. MEDIASTINUM: Lack of IV contrast is noted to limit evaluation for mediastinal and especially hilar ad enopathy. No greater than 1 cm thoracic adenopathy. Moderate to severe three-vessel coronary artery c alcification. Ascending aorta measures 3.7 cm at the root coronal image 54. Ascending aorta measures 3.8 cm at level of the pulmonary artery axial image 28. There is normal three-vessel origin from aort ic arch. No greater than 4.0 cm aneurysm. Mild calcified plaque in the ascending aorta and arch. No c ardiomegaly or pericardial effusion is seen. Slightly small size thyroid gland noted. OTHER: Thin-walled cysts of varying size and shape are scattered throughout the visualized portion of both kidneys raising concern for polycystic kidney disease. Multilevel spurring in the thoracic spin e is seen. IMPRESSION: 1. Some ectasia of the ascending aorta up to 3.8 cm. 2. Underlying polycystic kidney disease is confirmed on patient's 2017 renal ultrasound.
== END | disposition home or self-care (01) ==
LOC: RADCTMAIN 09:59
PROVIDERS: ATTEND Family Medicine
DX: I71.20 Thoracic aortic aneurysm, without rupture, unspecified (principal); Q61.3 Polycystic kidney, unspecified; I10 Essential (primary) hypertension
CPT/HCPCS: 36415; 71250; 80053; 85027

== ENCOUNTER → 2024-03-07 | Outpatient (CLI) | payer MEDICARE ==
--- NOTE | 2024-03-07 15:13 | XR ---
EXAMINATION TYPE: XR chest 2V DATE OF EXAM: 03/07/2024 COMPARISON: NONE CLINICAL INDICATION: Male, 73 years old with history of R0602,R059 SOB,COUGH; , TECHNIQUE: XR chest 2V views of the chest. FINDINGS: The lungs are clear and there is no pneumothorax, pleural effusion, or focal pneumonia. Heart size normal and no overt failure. Osseous structures demonstrate hypertrophic and degenerative changes of the spine. Tortuosity of the thoracic aorta. Postsurgical change overlying the cervical spine. Genera lized demineralization. AC joint joint arthropathy. IMPRESSION: 1. No acute process. [facility], , 03/07/2024 3:11 PM
== END | disposition home or self-care (01) ==
LOC: RADXRYALE 14:48
PROVIDERS: ATTEND Physician Assistant Medical
DX: R06.02 Shortness of breath (principal); R05.9 Cough, unspecified
CPT/HCPCS: 71046